=== PATIENT | male | born 1990 | race Two or more races ===

== ENCOUNTER 2018-12-12 01:32 | Emergency (ER) | payer OTHER ==
[~2018-12-12] VITALS: Ht 167.6 cm; Wt 72.6 kg
[2018-12-12 01:32] VITALS: BP 121/75
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
[2018-12-12 02:27] VITALS: BP 121/75
== END 2018-12-12 02:30 | disposition home or self-care (01) ==
LOC: ER 01:32 → EDBD 01:32 → ER 02:30
DX: S93.402A Sprain of unspecified ligament of left ankle, initial encounter (principal); S59.912A Unspecified injury of left forearm, initial encounter; V48.6XXA Car passenger injured in noncollision transport accident in traffic accident, initial encounter; Y93.89 Activity, other specified; Y92.488 Other paved roadways as the place of occurrence of the external cause; Y99.8 Other external cause status
CPT/HCPCS: 99284; 73030-LT; 73090-LT